=== PATIENT | female | born 1960 | race Two or more races ===

== ENCOUNTER 2020-12-27 12:02 | Emergency (ER) | payer OTHER ==
[2020-12-27 12:49] VITALS: BMI 29.2
[2020-12-27] MEDS ORDERED: CASIRIVIMAB/IMDEVIMAB 10 ML in SODIUM CHLORIDE 100 ML IVPB ONE (13:24)
[2020-12-27 14:26] VITALS: TEMP 98.7
[2020-12-27 15:32] VITALS: BP 122/62; PULSE 74
== END 2020-12-27 16:10 | disposition home or self-care (01) ==
LOC: JCOVINFU 12:02
DX: U07.1 COVID-19 (principal)
CPT/HCPCS: 99284-25; M0240; Q0240